=== PATIENT | female | born 1945 | race Caucasian/White ===

== ENCOUNTER → 2019-12-08 | Outpatient (CLI) | payer OTHER ==
[~2019-12-08] MED LIST: ALDACTONE50 MG PO; CALCIUM 600 +1 EAC1 PO; DIGOXIN250 MCG PO; LETROZOLE2.5 MG PO; MOBIC15 MG PO; NORCO 5-325 TA1 EACH PO; OMEPRAZOLE40 MG PO; RESVERATROL250 MG PO; ROBAXIN500 MG PO; TIZANIDINE HCL 22 M1 PO; TOPROL XL25 MG PO; VASOTEC10 MG PO; ZYRTEC10 M5 PO
== END ==
LOC: M.RAD 13:48
PROVIDERS: ATTEND Internal Medicine
DX: R06.02 Shortness of breath (principal)